=== PATIENT | male | born 1980 | race Caucasian/White ===

== ENCOUNTER 2017-01-26 06:49 | Emergency (ER) | payer OTHER ==
[2017-01-26 07:06] VITALS: BP 136/88; PULSE 70; RESP 16; TEMP 98.6; O2SAT 94
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
== END 2017-01-26 07:59 | disposition home or self-care (01) ==
DX: Z77.21 Contact with and (suspected) exposure to potentially hazardous body fluids (principal)